=== PATIENT | male | born 1965 | race Caucasian/White ===

== ENCOUNTER 2019-01-04 14:18 | Observation (INO) | payer SELFPAY ==
[2019-01-04] MEDS ORDERED: Aspirin Chewable 81 MG TAB ONE (14:26)
[2019-01-04] MEDS ORDERED: Nitroglycerin 2% Ointment 1 INCH/1 GM Packet ONE (14:26)
[2019-01-04 14:45] LABS: #Basophils 0.1 thou/uL (0.0-0.2); #Eosinphils 0.1 thou/uL (0.0-0.7); #Lymphocytes 2.5 thou/uL (1.20-3.40); #Monocytes 0.6 thou/uL (0.11-0.59); #Neutrophils 5.5 thou/uL (1.40-6.50); %Basophils 0.8 % (0.0-1.0); %Lymphocytes 28.6 % (21.0-51.0); %Monocytes 6.6 % (0.0-10.0); %Neutrophils 63.1 % (42.0-75.0); Hemoglobin 16.1 g/dL (14.0-18.0); Mean Corpuscular HGB CONC 34.8 g/dL (32.0-36.0); Mean Corpuscular Hemoglobin 32.1 pg (27.0-31.0); Mean Corpuscular Volume 92.2 fL (78.0-98.0); Mean Platelet Volume 8.1 fL (7.4-10.4); Platelet Count 206 thou/uL (130-400); RBC Distribution Width 11.5 % (11.5-14.5); Red Blood Cell (RBC) Count 5.01 mill/uL (4.70-6.10); White Blood Cell (WBC) Count 8.7 thou/uL (4.8-10.8)
--- NOTE | 2019-01-04 14:45 | RAD ---
Portable frontal chest radiograph: 01/04/2019 COMPARISON: None HISTORY: Chest pain FINDINGS: Lungs are clear. Heart and mediastinal contours appear within normal limits. IMPRESSION: No acute findings.
[2019-01-04 15:07] LABS: ALT (SGPT) 20 U/L (8-55); AST (SGOT) 23 U/L (5-34); Albumin 4.4 g/dL (3.5-5.0); Alkaline Phosphatase 80 U/L (40-150); Anion Gap 16 mmol/L (10-20); BUN (Urea Nitrogen) 19 mg/dL (8.4-25.7); Bilirubin, Total 0.5 mg/dL (0.2-1.2); CK (CPK) 202 U/L (30-200); Calc. Creatinine Clearance 0 mL/min (70-130); Carbon Dioxide 18 mmol/L (22-29); Chloride 105 mmol/L (98-107); Estimated GFR-MDRD 48; Globulin 3.5 g/dL (2.4-3.5); Glucose 149 mg/dL (70-105); Lipase 28 U/L (8-78); Potassium 4.4 mmol/L (3.5-5.1); Protein, Total 7.9 g/dL (6.0-8.3); Sodium 135 mmol/L (136-145)
[2019-01-04] MEDS ORDERED: Enoxaparin Sodium 80 MG/0.8 ML SYRINGE ONE (15:49)
[2019-01-04] MEDS ORDERED: Acetaminophen 325 MG TAB PO PRN (16:32)
[2019-01-04] MEDS ORDERED: Nitroglycerin 0.4 MG TAB (25 Tab Bottle) PO PRN (16:34)
[2019-01-04] MEDS ORDERED: Ketorolac Tromethamine 30 MG/ML VIAL IVP PRN (17:56)
[2019-01-04 18:14] VITALS: BMI 23.3
[2019-01-04 18:39] LABS: Troponin I Less than 0.010 ng/mL (< 0.028)
[2019-01-04] MEDS: Famotidine 20 MG TAB PO SCH (19:21)
[2019-01-04] MEDS ORDERED: Ondansetron ODT 4 MG TAB PO PRN (19:39)
[2019-01-04] MEDS ORDERED: Ondansetron PF 4 MG/2 ML Vial IVP PRN (19:39)
[2019-01-04 21:25] LABS: #Basophils 0.1 thou/uL (0.0-0.2); #Eosinphils 0.2 thou/uL (0.0-0.7); #Lymphocytes 3.1 thou/uL (1.20-3.40); #Monocytes 0.6 thou/uL (0.11-0.59); #Neutrophils 4.1 thou/uL (1.40-6.50); %Basophils 0.7 % (0.0-1.0); %Eosinophils 2.1 % (0.0-10.0); %Monocytes 6.9 % (0.0-10.0); %Neutrophils 51.2 % (42.0-75.0); Hemoglobin 14.7 g/dL (14.0-18.0); Mean Corpuscular HGB CONC 34.8 g/dL (32.0-36.0); Mean Corpuscular Hemoglobin 31.9 pg (27.0-31.0); Mean Corpuscular Volume 91.6 fL (78.0-98.0); Mean Platelet Volume 7.9 fL (7.4-10.4); Platelet Count 194 thou/uL (130-400); RBC Distribution Width 11.4 % (11.5-14.5); White Blood Cell (WBC) Count 7.9 thou/uL (4.8-10.8)
[2019-01-04 21:52] LABS: Troponin I Less than 0.010 ng/mL (< 0.028)
--- NOTE | 2019-01-04 22:38 | HP ---
TIME OF INITIAL ASSESSMENT: 1800 PRIMARY CARE PHYSICIAN: None. CHIEF COMPLAINT: Chest pain. HISTORY OF PRESENT ILLNESS: Mr. Cerda is a 53-year-old gentleman with no known past medical history, who does not usually follow with a regular primary care physician, who presents due to complaints of chest pain that started at some point yesterday, throughout during the day. 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 The patient states he recalls having chest pain during work yesterday, but is unsure at what time. He states it was approximately 6/10 in severity and feels it may have been a pressure or sharp pain. He states he continued to carry on working and forgot about the pain. Once he got home and was resting, he noticed he was still having chest pain. He states it was more noticeable and possibly a 7 or 8 out of 10 in severity. He did not take anything for the pain and states it was difficult to stay asleep through the night due to the discomfort. This morning, due to the persisting pain, he opted to come in for further assessment. He denies having any chest pain in the past. Denies having any difficulty breathing. No associated nausea or vomiting. Does recall being diaphoretic for about an hour to an hour and a half last night at one point. He denies having any nausea or vomiting. No cough or hemoptysis. He does smoke. Denies having any other complaints. In the emergency department, the patient was given Lovenox 1 mg/kg and also given aspirin 324 mg with 1 inch of Nitro-Bid. REVIEW OF SYSTEMS: His appetite is good. Denies any drastic changes in weight. Denies any headaches or dizziness. No abdominal pain or cramping. No changes with his bowels. No urinary symptoms. No recent fevers, chills, or sweats. No dysphagia. No indigestion. All other review of systems are negative. PAST MEDICAL HISTORY: None. PAST SURGICAL HISTORY: 1. Appendectomy. 2. Tonsillectomy. SOCIAL HISTORY: Patient states he drinks socially. Denies any daily alcohol consumption. Does report smoking 1 pack of cigarettes per day. Denies any drug use. ALLERGIES: NO KNOWN DRUG ALLERGIES. CURRENT MEDICATIONS: None. PHYSICAL EXAMINATION: GENERAL: The patient is thin, well developed, and in no acute distress. VITAL SIGNS: Temperature 98.1, pulse 77, respirations 16, O2 saturation 97% on room air, blood pressure 109/61. HEENT: Normocephalic and atraumatic. Pupils are equal, round, and reactive to light. Sclerae without icterus. Oropharynx is clear. NECK: Supple. LUNGS: Clear to auscultation bilaterally. CARDIAC: Regular rate and rhythm. No chest wall tenderness to palpation. ABDOMEN: Soft, nontender, nondistended. Normoactive bowel sounds present. EXTREMITIES: No lower leg swelling or edema. NEUROLOGIC: Alert and oriented x3. SKIN: Without rash or jaundice. LABORATORY DATA: Full blood count unremarkable. D-dimer negative. Sodium 135, potassium 4.4, BUN 19, creatinine 1.52, GFR 48, glucose 149, calcium 10. Total bilirubin 0.5, AST 23, ALT 20, alkaline phosphatase 80. CK 202. Troponin negative. BNP negative. Albumin 4.4, lipase 28. IMAGING DATA: Chest x-ray, no acute findings. EKG, sinus tachycardia with a heart rate of 102. No ST changes or T-wave abnormalities. IMPRESSION AND PLAN: Mr. Cerda is a very pleasant 53-year-old gentleman with no known past medical history, who presents with complaints of chest pain and has been referred for further workup. He has been treated with Lovenox in the emergency department. EKG was unremarkable. Initial troponin negative. We will continue to trend troponins. We will plan for stress test in the morning. The patient had a normal BNP. Echocardiogram has not been done in the past; however, no indication to do this as an inpatient, but should be pursued in the outpatient setting. We do plan to keep the patient n.p.o. after midnight. At present, he is pain free and has no complaints. We will continue to monitor. Nitroglycerin ordered as needed. He is noted to have an elevated creatinine of 1.52; therefore, we will give IV fluids. Code status full. His surrogate decision maker is his brother, Panda Cerda. Patient evaluated by Dr. Garcia, who agrees with plan of care as described above. Job ID: [id number]
[2019-01-04] MEDS: Sodium Chloride 0.9% 1,000 ML IV SCH (22:56)
[2019-01-05 07:04] LABS: Anion Gap 16 mmol/L (10-20); BUN (Urea Nitrogen) 16 mg/dL (8.4-25.7); Calc. Creatinine Clearance 95 mL/min (70-130); Calcium 8.9 mg/dL (7.8-10.44); Carbon Dioxide 16 mmol/L (22-29); Cardiac Risk 8.5 (Less than 4.5); Chloride 110 mmol/L (98-107); Cholesterol 212 mg/dl (< 200 Desired); Estimated GFR-MDRD 76; Glucose 80 mg/dL (70-105); HDL Cholesterol 25 mg/dL (>60 Neg Risk); LDL Cholesterol, Calculated 151 mg/dL; Potassium 4.9 mmol/L (3.5-5.1); Sodium 137 mmol/L (136-145); Triglycerides 182 mg/dL (Less than 150)
[2019-01-05] MEDS ORDERED: Aspirin 325 mg Enteric Coated Tablet PO SCH (09:00)
[2019-01-05] MEDS: Sodium Chloride 0.9% 1,000 ML IV SCH (11:29)
[2019-01-05] MEDS: Famotidine 20 MG TAB PO SCH (11:33)
[2019-01-05 11:39] VITALS: BP 130/78; TEMP 97.6
--- NOTE | 2019-01-05 11:47 | NM ---
EXAM: Nuclear medicine cardiac SPECT with EF and wall motion: HISTORY: Chest pain Protocol: Exam was performed using exercise treadmill, Juan Antonio protocol. The patient is injected with32.7 millicuries of technetium 99m sestamibi intravenously for stress peyman ges. The patient is injected with10.7 millicuries of technetium 99 sestamibi intravenously for resting peyman ges. Multiple SPECT images are performed in the short axis, vertical long axis, and horizontal long axis. FINDINGS: No scan evidence for infarct or ischemia. TID:0.98 LHR:0.38 EDV:125 mL EF:58% Wall motion:Normal IMPRESSION: Unremarkable cardiac SPECT with EF and wall motion.
--- NOTE | 2019-01-06 14:45 | DIS ---
DATE OF ADMISSION: 01/04/2019 DATE OF DISCHARGE: 01/05/2019 DISCHARGE DIAGNOSES: 1. Chest pain. 2. Tobacco abuse. 3. Hyperlipidemia. 4. Acute kidney injury. 5. Dehydration. 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 The patient had developed some chest pain at work and ultimately presented to the emergency department. In the emergency department, the patient's labs were notable for a creatinine of 1.52 with an unknown baseline. His glucose was 149, CK 202, troponin less than 0.01. CBC was normal. D-dimer was 0.32. HOSPITAL COURSE: The patient was placed on observation after receiving Lovenox, aspirin, and transdermal nitroglycerin in the emergency department. He also received a 500 mL fluid bolus. The patient remained on telemetry, had serial cardiac isoenzymes which remained negative. He remained on fluid overnight and the following morning, his creatinine had improved to 1.02. He had cholesterol panel showed a total cholesterol of 212, LDL of 151, HDL 25, and triglycerides 182. He had a stress test, which returned negative, and with that, the patient was felt to be stable for discharge. DISCHARGE PHYSICAL EXAMINATION: VITAL SIGNS: At the time of discharge, temperature is 97.6, pulse 80, respirations 16, O2 saturations 97% on room air, BP 130/78. GENERAL: He is awake, alert, oriented, pleasant, and cooperative. HEART: Regular rate and rhythm without murmurs. LUNGS: Clear bilaterally. ABDOMEN: Soft, nontender, and nondistended. EXTREMITIES: No edema. DISPOSITION: The patient is discharged to home. DIET: He is to have a heart healthy diet. ACTIVITY: His activity level is as tolerated. He will be on aspirin 81 mg daily, Atorvastatin 40 mg p.o. daily. FOLLOWUP: He is encouraged to establish with a primary care provider and see them within the next 10 days. He can return to the hospital should he have any need to do so. Job ID: [id number] MTDD
--- NOTE | 2019-01-12 12:42 | STRESS ---
Acquisition Time: 2019-01-05 10:04:33 Total Exercise Time: 00:09:00 Test Indications: CHEST PAIN Medications: Protocol: SEVERINO Max HR: 148 BPM 88% of Pred: 167 BPM Max BP: 160/064 mmHG Max Work Load: 10.1 METS RESTIN ECG: SINUS BRADYCARDIA AT 55 BPM SYMPTOMS: NONE NORMAL BP RESPONSE ECTOPY: NONE ECG STRESS: NO SIGNIFICANT CHANGES INTERPRETATION: NEGATIVE GXT/AWAIT NUCLEAR IMAGES FOR DEFINITIVE DIAGNOSIS Confirmed by DESHAWN TALAMANTES ELLEN ([id number]) on 01/12/2019 12:42:28 PM Referred By: MD Aldair RIVAS Confirmed By:LUAN TALAMANTES PA-C
== END 2019-01-05 13:08 | disposition home or self-care (01) ==
LOC: ERS 14:18 → 2SW 16:44
PROVIDERS: ADMIT Internal Medicine; ATTEND Internal Medicine
DX: R07.89 Other chest pain (principal); F17.210 Nicotine dependence, cigarettes, uncomplicated; E78.5 Hyperlipidemia, unspecified; E86.0 Dehydration; N17.9 Acute kidney failure, unspecified
CPT/HCPCS: 36415; 71045; 78452; 80048; 80053; 80061; 82550; 83690; 83880; 84484; 85025; 85379; 93005; 93017; 94760; 96360; 96361; 96372; A9500; G0378; J1650